=== PATIENT | male | born 1950 | race Caucasian/White ===

== ENCOUNTER → 2018-06-17 | Day surgery (SDC) | payer OTHER, MEDICARE ==
[~2018-06-17] VITALS: Ht 182.9 cm; Wt 67.1 kg
[~2018-06-17] MED LIST: COZAAR100 M1 PO
--- NOTE | 2018-06-17 10:43 | Operative Report ---
Operative/Inv Procedure Report Surgery Date: 06/17/18 Name of Procedure: Cystoscopy, left ureteroscopy, laser lithotripsy of left ureteral calculi with basket extraction of stone fragments, exchange of left double-J ureteral stent, laser lithotripsy of multiple bladder calculi Pre-Operative Diagnosis: 2 stones and left ureter and multiple bladder stones Post-Operative Diagnosis: Same Estimated Blood Loss: less than 50ml Surgeon/General Maintenance Engineer: Cecilio RAGSDALE,Benjamin Ray Anesthesia: laryngeal mask airway Drains: 26 cm 6 [place] left double-J stent with long suture at 22 [place] three-way Thorne catheter Specimens: Urine culture and stone fragments and removed ureteral stent Complications: None Condition: Stable Operative Indication: This patient has a long history of urinary stones. Recently he developed left flank pain. CT scan showed 2 stones in the left ureter with obstruction. His creatinine was elevated at the time to 2.1. He underwent emergent cystoscopy and left ureteral stent placement. His creatinine returned to normal. On his imaging he was also noted to have multiple bladder calculi. He is now brought back to the hospital for removal of his bladder and left ureteral calculi Operative/Procedure Note Note: The patient was taken to the cystoscopy room and identified. He is placed in supine position on the cystoscopy table. Timeout was executed appropriately with the patient awake. Gen. anesthesia was induced via LMA. He was then placed in the dorsal lithotomy position and prepped and draped in usual fashion for cystoscopy. A surgical pause was executed appropriately. Fluoroscopy images taken with a marker on the left side of the abdomen to confirm the correct side of the surgery as well as a correct orientation of the fluoroscopy image. 22 [place] cystoscope sheath was placed into the bladder under direct vision. Anterior urethra was normal. The prostatic urethra showed evidence of previous TURP in was not obstructing. Upon entering the bladder the distal end of the left ureteral stent was seen. Urine was collected for culture. There were 4 calculi noted in the bladder. There was no evidence of bladder tumors. At this point a guidewire was advanced adjacent to the indwelling left ureteral catheter and manipulated up into the left kidney. The cystoscope was removed leaving the guidewire in place. Cystoscope was placed back into the bladder adjacent the guidewire. Using a grasping forceps the distal end of the indwelling stent was grasped and removed. At this point the short rigid ureteroscope was advanced through the urethra and into the left ureter. 2 cm proximal to the ureterovesical junction calculus was seen which was about 8-9 mm in size. Using the 365 holmium laser fiber this was fragmented into multiple fragments. The ureteroscope was advanced proximally. At the upper border of the sacroiliac joint level a second stone was seen. This was 9-10 mm in size. Same laser fiber was then used to fragment the stone into multiple fragments. At this point a spiral stone basket was used to remove all visible stone fragments. Some of the fragments were actually removed and the others were just brought down into the bladder and left there. At this point the cystoscope was advanced up to the L3-L4 level. No further stone fragments were seen. The ureteroscope was removed and the cystoscope was back loaded onto the safety guidewire. An open-ended catheter was placed over the wire and the wire removed. Some contrast was injected to outline the left renal collecting system. Guidewire was placed back through the open-ended catheter which was removed. Under visual fluoroscopic control a 26 cm 6 [place] left double-J ureteral stent was placed. A long suture was left attached the distal and the stent. Fluoroscopy confirmed the proximal end of the left ureteral stent coiled in the left renal pelvis and the distal end coiled in the bladder. At this point the continuous flow laser cystoscope was advanced into the bladder. 1000 was at least 1 cm in size. Ellik evacuator was used to remove all stone fragments from the bladder. This time there were no remaining stone fragments seen. Bladder was left full and the cystoscope removed. A 22 [place] three-way Thorne catheter was inserted and continuous bladder irrigation begun with clear drainage. She tolerated the procedure well and as completion was taken recovery room in stable condition. Findings: 2 stones in the left ureter and 4 calculi within the urinary bladder Discharge Disposition: PACU
--- NOTE | 2018-06-17 21:36 | RADIOLOGY REPORT ---
EXAMINATION: CR ABDOMEN/INTRAOPERATIVE FLUOROSCOPY CLINICAL INDICATION: Left stent removal. Ureteroscopy. Lithotripsy. Retrograde and stent insertion in OR. COMPARISON: None TECHNIQUE/FINDINGS: Fluoroscopic equipment was dedicated to the operating room for the performance of an intraoperative procedure. Several (15) spot films were acquired and are archived in PACS. Please refer to operative notes for procedural detail. FLUOROSCOPY TIME: 23 seconds. IMPRESSION: Administrative dictation for intraoperative fluoroscopy and image archiving in PACS. Please refer to operative notes for details.
== END ==
LOC: STS 04:16
DX: N20.1 Calculus of ureter (principal); N21.0 Calculus in bladder; I10 Essential (primary) hypertension; Z87.891 Personal history of nicotine dependence
CPT/HCPCS: 36415; 76000; 82355; 87086; C2617; J0690; J2250